=== PATIENT | female | born 1995 | race African-American/Black ===

== ENCOUNTER 2018-08-28 09:47 | Outpatient (CLI) | payer MEDICAID ==
[2018-08-28] MEDS ORDERED: BETAMET ACET/BETAMET NA INJ 6 MG/1 ML IM ONE (09:57)
[2018-08-28] MEDS ORDERED: BETAMET ACET/BETAMET NA INJ 6 MG/1 ML ONE (10:02)
== END 2018-08-28 10:15 | disposition home or self-care (01) ==
LOC: LC 09:47
PROVIDERS: ATTEND Obstetrics & Gynecology
DX: Z34.93 Encounter for supervision of normal pregnancy, unspecified, third trimester (principal); Z3A.36 36 weeks gestation of pregnancy
CPT/HCPCS: 96372; J0702

== ENCOUNTER 2018-08-29 05:09 | Inpatient (IN) | payer MEDICAID ==
[2018-08-29 06:05] LABS: APPEARANCE,URINE SLIGHTLY-CLOUDY; BILIRUBIN,URINE NEGATIVE (NEGATIVE); COLOR,URINE YELLOW; GLUCOSE, URINE NEGATIVE (NEGATIVE); KETONES,URINE TRACE mg/dL (NEGATIVE); LEUKOCYTE ESTERASE,URINE MODERATE (NEGATIVE); NITRITE,URINE NEGATIVE (NEGATIVE); PROTEIN,URINE NEGATIVE (NEGATIVE); URINE SPECIFIC GRAVITY 1.011; UROBILINOGEN,URINE NEGATIVE mg/dL (<2.0)
[2018-08-29 06:26] LABS: URINE AMPHETAMINES SCREEN NEGATIVE; URINE BARBITURATES SCREEN NEGATIVE; URINE BENZODIAZEPINES SCREEN NEGATIVE; URINE COCAINE SCREEN NEGATIVE; URINE MARIJUANA (THC) SCREEN NEGATIVE; URINE METHADONE SCREEN NEGATIVE; URINE PHENCYCLIDINE SCREEN NEGATIVE
[2018-08-29 06:28] LABS: ABSOLUTE LYMPHOCYTES (AUTO) 1.4 10^3/uL (0.5-4.7); ABSOLUTE MONOCYTES (AUTO) 0.9 10^3/uL (0.1-1.4); ABSOLUTE NEUT (AUTO) 8.9 10^3/uL (1.7-8.2); BASOPHILS % (AUTO) 0.3 % (0-2); EOSINOPHILS % (AUTO) 0.1 % (0-6); HEMATOCRIT 33.8 % (36.0-47.0); HEMOGLOBIN 11.2 g/dL (12.0-15.5); LYMPHOCYTES % (AUTO) 12.2 % (13-45); MEAN CORPUSCULAR HEMOGLOBIN 25.8 pg (27.0-33.4); MEAN CORPUSCULAR HGB CONC 33.3 g/dL (32.0-36.0); MEAN CORPUSCULAR VOLUME 78 fl (80-97); MONOCYTES % (AUTO) 7.7 % (3-13); PLATELET COUNT 155 10^3/uL (150-450); RED BLOOD COUNT 4.35 10^6/uL (3.72-5.28); RED CELL DISTRIBUTION WIDTH 21.8 % (11.5-14.0); SEGMENTED NEUTROPHILS % (AUTO) 79.7 % (42-78); TOTAL CELLS COUNTED % (AUTO) 100 %; WHITE BLOOD COUNT 11.2 10^3/uL (4.0-10.5)
[2018-08-29] MEDS ORDERED: RINGERS SOLUTION,LACTATED 1,000 ML IV ONE (06:30)
[2018-08-29] MEDS ORDERED: CEFAZOLIN 1 GM/D5W RTU 1 GM/50 ML RTUPB IV PRN (06:32)
[2018-08-29] MEDS: RINGERS SOLUTION,LACTATED 1,000 ML IV PRN ×2 (06:49→09:54)
[2018-08-29] MEDS ORDERED: PHENYLEPHRINE HCL INJ/PF 10 MG/1 ML SDV ONE (07:23)
[2018-08-29] MEDS ORDERED: CARBOPROST TROMETHAMINE INJ 250 MCG/1 ML AMPULE ONE (07:23)
[2018-08-29] MEDS ORDERED: MIDAZOLAM 2 MG/2 ML INJ ONE (07:23)
[2018-08-29] MEDS ORDERED: OXYTOCIN 10 UNIT/ML VIAL ONE (07:23)
[2018-08-29] MEDS ORDERED: OXYTOCIN/NORMAL SALINE 20 UNIT/1,000 ML RTUINJ ONE (07:23)
[2018-08-29] MEDS ORDERED: ONDANSETRON HCL INJ/PF 4 MG/2 ML SDV ONE (07:23)
[2018-08-29] MEDS ORDERED: ACETAMINOPHEN 1,000 MG/100 ML RTUPB IV ONE (07:23)
[2018-08-29] MEDS ORDERED: CITRIC ACID/SODIUM CITRATE ORAL SOLN 15 ML UDCUP ONE (07:24)
[2018-08-29] MEDS ORDERED: METHYLERGONOVINE MALEATE INJ/PF 0.2 MG/1 ML AMPULE ONE (07:24)
[2018-08-29 07:30] LABS: CHLAM PCR NOT DETECTED (NOT DETECT); GON PCR NOT DETECTED (NOT DETECT)
[2018-08-29] MEDS ORDERED: DIPHENHYDRAMINE HCL 50 MG/ML VIAL IV PRN (08:18)
[2018-08-29] MEDS ORDERED: MORPHINE SULFATE 10 MG/ML INJ IV PRN ×2 (08:18→08:32)
[2018-08-29] MEDS ORDERED: FENTANYL CITRATE INJ/PF 100 MCG/2 ML AMPUL IV PRN ×3 (08:18)
[2018-08-29] MEDS ORDERED: MEPERIDINE HCL/PF INJ 25 MG/1 ML DISP.SYRIN IV PRN (08:18)
[2018-08-29] MEDS ORDERED: PROMETHAZINE HCL INJ 25 MG/1 ML VIAL IV PRN ×2 (08:18→08:32)
[2018-08-29] MEDS ORDERED: OXYCODONE-ACETAMINOPHEN 5-325 MG TABLET PO PRN (08:32)
[2018-08-29] MEDS ORDERED: OXYTOCIN/NORMAL SALINE 20 UNIT/1,000 ML RTUINJ IV PRN (08:32)
[2018-08-29] MEDS ORDERED: RINGERS SOLUTION,LACTATED 1,000 ML IV PRN (08:32)
[2018-08-29] MEDS ORDERED: DIPH/PERTUSS(ACELL)/TETANUS VAC/PF 0.5 ML SYR (>=10YO) IM PRN (08:32)
[2018-08-29] MEDS ORDERED: SIMETHICONE 80 MG TAB.CHEW PO PRN (08:32)
[2018-08-29] MEDS ORDERED: ACETAMINOPHEN 325 MG TABLET PO PRN (08:32)
[2018-08-29] MEDS ORDERED: ACETAMINOPHEN 1,000 MG/100 ML RTUPB IV PRN (08:32)
[2018-08-29] MEDS ORDERED: MEASLES,MUMPS&RUBELLA VACC/PF 0.5 ML VIAL SUBCUT PRN (08:32)
[2018-08-29] MEDS ORDERED: KETOROLAC TROMETHAMINE INJ/PF 30 MG/1 ML SDV ONE (09:27)
[2018-08-29] MEDS: KETOROLAC TROMETHAMINE INJ/PF 30 MG/1 ML SDV IV SCH ×2 (09:29→17:10)
--- NOTE | 2018-08-29 09:29 | OPERATIVE REPORT E ---
Operative Report NAME: RAMU KEARNEY : 1995 AGE: 23Y DATE OF SURGERY: 08/29/2018 ROOM: 216 PREOPERATIVE DIAGNOSIS: INTRAUTERINE AT 36 WEEKS AND 5 DAYS, DICHORIONIC-DIAMNIOTIC TWINS, TWIN DISCORDANCE INTRAUTERINE GROWTH RESTRICTION IN A ELEVATED DOPPLERS OF TWIN A. PROCEDURE: A low transverse hysterotomy section. SURGEON: SOHAIL LOPEZ M.D. RAW SHELLFISH PREPARER: Corina Kitchen, surgical garment inspector ANESTHESIA: Christal Irizarry M.D. with a spinal. FINDINGS: Female infants in cephalic presentation with Apgars of twin A 9 and 9; twin B was 8 and 9. Positions of both twins were vertex. COMPLICATIONS: None. ESTIMATED BLOOD LOSS: 750 mL. SPECIMENS REMOVED: Placenta. PROCEDURE IN DETAIL: The patient was taken to the operating room, prepared and draped in the normal sterile fashion in a supine position with a leftward tilt. A transverse skin incision was made with scalpel and carried through to the underlying layer fascia with the same scalpel. The fascia was excised in the midline and extended laterally with Mayohector. The fascia was then dissected from the rectus muscle using Mayos and the rectus muscle was divided, the peritoneal cavity was entered sharply with Metzenbaum's with good visualization of the bladder and the uterus. The bladder blade was inserted, the hysterotomy was nicked with a scalpel and extended laterally with surgeon finger fracture. The first was then delivered atraumatically. The nose and mouth were suction with a suction bulb and the cord was clamped and cut, and the infant was handed off to awaiting employee wellness/fitness coordinator. Cord blood was collected and attention was turned to the second baby. The amniotic sac was pierced with a hemostat. The was then delivered atraumatically. The nose and mouth were suction with a suction bulb and the cord was clamped and cut, and the was handed off to awaiting employee wellness/fitness coordinator. Cord blood was collected on this placenta. This umbilical cord was marked with an umbilical clamp. The placentas were then removed manually. The uterus was exteriorized and cleared of clots and debris. The hysterotomy was closed with 0 Monocryl in a running locked fashion and the second layer the same suture was used in an imbrication to ensure hemostasis. The uterus was returned to the abdomen and the peritoneal cavity was cleared of clots and debris. The peritoneum and rectus muscle were reapproximated with a mattress stitch of 2-0 Chromic. The fascia was closed with 0 Vicryl and the subcutaneous layer was closed with plain catgut, and the skin was closed with 4-0 Vicryl. The patient tolerated the procedure well. Sponge, lap, and needle counts were correct x2 and the patient was taken to recovery in stable condition. DICTATING PHYSICIAN: SOHAIL LOPEZ M.D. [id number] PHY#: [id number] ID: [id number] JOB#: [id number] ACCT: [id number] cc:SOHAIL LOPEZ M.D. >
[2018-08-29] MEDS ORDERED: MORPHINE SULFATE 10 MG/ML INJ ONE (10:16)
[2018-08-29] MEDS ORDERED: HYDROMORPHONE HCL INJ/PF 2 MG/ML AMPULE ONE (11:05)
[2018-08-29] MEDS ORDERED: HYDROMORPHONE HCL INJ/PF 2 MG/ML AMPULE IV ONE (12:00)
[2018-08-29] MEDS: DOCUSATE SODIUM 100 MG CAPSULE PO SCH ×2 (12:16→17:10)
[2018-08-29] MEDS: PRENATAL VITAMIN W DHA CAPSULE PO SCH (12:17)
[2018-08-29] MEDS: OXYCODONE-ACETAMINOPHEN 5-325 MG TABLET PO PRN ×2 (17:11→22:38)
[2018-08-30] MEDS: KETOROLAC TROMETHAMINE INJ/PF 30 MG/1 ML SDV IV SCH (02:00)
[2018-08-30 07:35] LABS: HEMATOCRIT 29.8 % (36.0-47.0); HEMOGLOBIN 10.1 g/dL (12.0-15.5); MEAN CORPUSCULAR HEMOGLOBIN 26.4 pg (27.0-33.4); MEAN CORPUSCULAR HGB CONC 33.8 g/dL (32.0-36.0); MEAN CORPUSCULAR VOLUME 78 fl (80-97); PLATELET COUNT 141 10^3/uL (150-450); RED BLOOD COUNT 3.81 10^6/uL (3.72-5.28); RED CELL DISTRIBUTION WIDTH 21.6 % (11.5-14.0); WHITE BLOOD COUNT 8.7 10^3/uL (4.0-10.5)
[2018-08-30] MEDS: IBUPROFEN 800 MG TABLET PO SCH ×3 (09:24→20:09)
[2018-08-30] MEDS: DOCUSATE SODIUM 100 MG CAPSULE PO SCH ×2 (09:25→19:51)
[2018-08-30] MEDS: PRENATAL VITAMIN W DHA CAPSULE PO SCH (09:25)
--- NOTE | 2018-08-30 09:34 | PDOC PROGRESS REPORT ---
Subjective-OB Progress Note for:: 08/30/18 Subjective: PPD 1. Pt doing well, no concerns. She reports light bleeding, regular diet and voiding without difficulty. Physical Exam (OB) Vital Signs: Temp Pulse Resp BP Pulse Ox 98.4 F 88 18 116/72 96 08/30/18 07:20 08/30/18 07:20 08/30/18 07:20 08/30/18 07:20 08/30/18 07:20 Intake & Output 08/29/18 08/30/18 08/31/18 06:59 06:59 06:59 Intake Total 1685 Output Total 1500 Balance 185 Weight 118.39 kg - PIH/Pre-Eclampsia DTR's: 1 + Clonus: Negative Headache: Absent Epigastric Pain: No Visual Changes: No - Dressing Removed: No Incision: Dressing - Bilateral Tubal Ligation Dressing Removed: No - Lochia Lochia Amount: Small 10-25 ml Lochia Color: Rubra/Red - Abdomen Description: Soft, Round Hernia Present: No Fundal Description: Firm, Midline Fundal Height: u/u - u/2 Objective-Diagnostic Laboratory: 08/30/18 06:45 08/30/18 06:45 WBC 8.7 RBC 3.81 Hgb 10.1 L Hct 29.8 L MCV 78 L MCH 26.4 L MCHC 33.8 RDW 21.6 H Plt Count 141 L Assessment and Plan(PN) - Assessment and Plan (1) Twin, delivered by Is this a current diagnosis for this admission?: Yes - Time Spent with Patient Time with patient: Less than 15 minutes Medications reviewed and adjusted accordingly: Yes - Disposition Anticipated Discharge: Home Within: within 24 hours
[2018-08-31] MEDS: IBUPROFEN 800 MG TABLET PO SCH ×2 (03:04→12:01)
[2018-08-31] MEDS: DOCUSATE SODIUM 100 MG CAPSULE PO SCH (12:01)
[2018-08-31] MEDS: PRENATAL VITAMIN W DHA CAPSULE PO SCH (12:01)
[2018-08-31 12:33] VITALS: BP 116/68
--- NOTE | 2018-09-05 09:30 | PDOC DISCHARGE SUMMARY ---
Final Diagnosis Discharge Date: 08/31/18 - Final Diagnosis (1) Twin, delivered by Is this a current diagnosis for this admission?: Yes Discharge Data - Discharge Medication Prescriptions: Oxycodone HCl/Acetaminophen [Percocet 5-325 mg Tablet] 1 tab PO Q4HP PRN #30 tablet PRN Reason: Ibuprofen [Motrin 800 mg Tablet] 800 mg PO Q8HP PRN #60 tablet PRN Reason: Home Medications: Pnv No.95/Ferrous Fum/Folic AC [ Caplet] 1 tab PO DAILY 08/28/18 Ibuprofen [Motrin 800 mg Tablet] 800 mg PO Q8HP PRN #60 tablet 08/31/18 Oxycodone HCl/Acetaminophen [Percocet 5-325 mg Tablet] 1 tab PO Q4HP PRN #30 tablet 08/31/18 Reason(s) for Admission: Ceasarean Section-Primary, Twins Intrapartum Procedure(s): : Low Cervical, Transverse - Diagnosis Test Laboratory: Temp Pulse Resp BP Pulse Ox 98.1 F 77 18 116/68 100 08/31/18 12:32 08/31/18 12:32 08/31/18 12:32 08/31/18 12:32 08/31/18 12:32 08/29/18 08/29/18 08/30/18 05:28 06:04 06:45 RBC 4.35 3.81 Hgb 11.2 L 10.1 L Hct 33.8 L 29.8 L Urine Opiates Screen NEGATIVE - Discharge information/Instructions Discharge Activity: Balance Activity w/Rest, Pelvic Rest, No tub bath Discharge Diet: Regular Disposition: HOME, SELF-CARE Follow up with: [facility] in: 5, Days
== END 2018-08-31 12:57 | disposition home or self-care (01) | DRG 788 ==
LOC: 2S 05:09
PROVIDERS: ADMIT Obstetrics & Gynecology; ATTEND Obstetrics & Gynecology
PROC: 10D00Z1 Extraction of Products of Conception, Low, Open Approach (ICD-10-PCS; principal; 2018-08-29 07:45)
DX: O36.5930 Maternal care for other known or suspected poor fetal growth, third trimester, not applicable or unspecified (principal); O30.043 Twin pregnancy, dichorionic/diamniotic, third trimester; Z3A.36 36 weeks gestation of pregnancy; Z37.2 Twins, both liveborn; Z83.3 Family history of diabetes mellitus
CPT/HCPCS: 1961; 36415; 59025; 80307; 81001; 85025; 85027; 86850; 86900; 86901; 87491; 87591; 88307; 94799; J0131; J0690; J1170; J1885; J2210; J2250; J2270; J2370; J2405; J2590; J3490; J7120